=== PATIENT | female | born 1940 | race African-American/Black ===

== ENCOUNTER → 2021-03-25 | Outpatient (CLI) | payer MEDICARE ==
[2021-03-24 16:25] VITALS: BP 132/79
[~2021-03-25] MED LIST: BARIUM SULFATE 40% (APPLE) 148 GM PWD. PO ONE
--- NOTE | 2021-03-25 10:52 | RAD ---
EXAM: Video swallow evaluation. HISTORY: Aspiration. TECHNIQUE: Fluoroscopic imaging was performed with a speech pathologist during the oral administratio n of barium contrast of varying consistencies. 0 fluoroscopic images were saved. The total fluoroscop y time was 4.7 minutes. COMPARISON: None. FINDINGS: There is deep penetration with thin, nectar and honey thick consistencies. This does not im prove with a chin to maneuver. There is poor oral bolus propagation and significant residue following swallowing attempts. IMPRESSION: Deep penetration with thin, nectar and honey thick consistencies. Please refer to the [facility] report by the speech pathologist for clinical recommendations. Electronically signed by: Gertrude Holt MD (03/25/2021 10:49 AM) [id number]
== END ==
LOC: RAD 09:31
PROVIDERS: ATTEND Family Medicine
DX: R13.10 Dysphagia, unspecified (principal)
CPT/HCPCS: 74230